=== PATIENT | male | born 1990 | race Two or more races ===

== ENCOUNTER 2018-03-08 23:36 | Emergency (ER) | payer BC ==
--- NOTE | 2018-03-08 23:50 | EDM.PDOC ---
ED HPI GENERAL MEDICAL PROBLEM - General Chief Complaint: Upper Extremity Injury/Pain Stated Complaint: RIGHT THUMB PAIN Time Seen by Provider: 03/08/18 23:47 - History of Present Illness INITIAL COMMENTS - FREE TEXT/NARRATIVE: HISTORY AND PHYSICAL: History of present illness: Past 27-year-old male presents with concern of acute injury to first digit right hand this occurred at work on his thumb was struck with a piece of equipment. He denies other trauma or concern Review of systems: As per history of present illness and below otherwise all systems reviewed and negative. Past medical history: As per history of present illness and as reviewed below otherwise noncontributory. Surgical history: As per history of present illness and as reviewed below otherwise noncontributory. Social history: No reported history of drug or alcohol abuse. Family history: As per history of present illness and as reviewed below otherwise noncontributory. Physical exam: HEENT: Atraumatic, normocephalic, pupils reactive, negative for conjunctival pallor or scleral icterus, mucous membranes moist, throat clear, neck supple, nontender, trachea midline. Lungs: Clear to auscultation, breath sounds equal bilaterally, chest nontender. Heart: S1S2, regular, negative for clicks, rubs, or JVD. Abdomen: Soft, nondistended, nontender. Negative for masses or hepatosplenomegaly. Negative for costovertebral tenderness. Pelvis: Stable nontender. Genitourinary: Deferred. Rectal: Deferred. Extremities: Patient has a small subungual hematoma noted first digit of his right hand at the base of his nail. He's had small swelling no crepitation limited range motion secondary to pain CMS and neurovascular exams unremarkable Neuro: Awake, alert, oriented. Cranial nerves II through XII unremarkable. Cerebellum unremarkable. Motor and sensory unremarkable throughout. Exam nonfocal. Diagnostics: X-ray right hand Therapeutics: To Be determined Impression: #1 acute right hand injury to small subungual hematoma Definitive disposition and diagnosis as appropriate pending reevaluation and review of above. Right Finger-Thumb Pain Score (Numeric/FACES): 7 - Related Data Allergies Allergy/AdvReac Type Severity Reaction Status Date / Time No Known Allergies Allergy Verified 03/08/18 23:44 Home Meds: Home Meds . [No Known Home Meds] 03/08/18 [History] Review of Systems - Review of Systems Review Of Systems: ROS reveals no pertinent complaints other than HPI. ED EXAM, GENERAL - Physical Exam Exam: See Below (See dictation) Course - Vital Signs Last Recorded V/S: Last Vital Signs Temp 36.3 C 03/08/18 23:45 Pulse 64 03/08/18 23:45 Resp 18 03/08/18 23:45 BP 128/84 03/08/18 23:45 Pulse Ox 98 03/08/18 23:45 - Orders/Labs/Meds Orders: Active Orders 24 hr Category Date Time Status Fingers Thumb Rt F5 [CR] Stat Exams 03/08/18 23:37 Taken Departure - Departure Time of Disposition: 00:11 Disposition: Home, Self-Care 01 Condition: Good Clinical Impression: Hand injury - Discharge Information Referrals: PCP,None [Primary Care Provider] - Forms: ED Department Discharge Additional Instructions: The following information is given to patients seen in the emergency department who are being discharged to home. This information is to outline your options for follow-up care. We provide all patients seen in our emergency department with a follow-up referral. The need for follow-up, as well as the timing and circumstances, are variable depending upon the specifics of your emergency department visit. If you don't have a primary care physician on staff, we will provide you with a referral. We always advise you to contact your personal physician following an emergency department visit to inform them of the circumstance of the visit and for follow-up with them and/or the need for any referrals to a consulting specialist. The emergency department will also refer you to a specialist when appropriate. This referral assures that you have the opportunity for followup care with a specialist. All of these measure are taken in an effort to provide you with optimal care, which includes your followup. Under all circumstances we always encourage you to contact your private physician who remains a resource for coordinating your care. When calling for followup care, please make the office aware that this follow-up is from your recent emergency room visit. If for any reason you are refused follow-up, please contact the [facility] emergency department at and asked to speak to the emergency department charge nurse. Motrin/Tylenol as directed splint as directed follow-up private medical doctor as needed as discussed and return as needed as discussed - My Orders Last 24 Hours: My Active Orders 03/08/18 23:37 Fingers Thumb Rt F5 [CR] Stat - Assessment/Plan Last 24 Hours: My Active Orders 03/08/18 23:37 Fingers Thumb Rt F5 [CR] Stat
--- NOTE | 2018-03-09 00:25 | CR ---
INDICATION: Trauma TECHNIQUE: Three views right thumb COMPARISON: None FINDINGS: Bones: Alignment is normal. No fractures or bone lesions. Joint spaces: Unremarkable. Soft tissues: Unremarkable. IMPRESSION: Negative. Dictated by Devante Parham MD @ 03/09/2018 12:23:17 AM Dictated by: Devante Parham MD @ 03/09/2018 00:23:26 (Electronically Signed)
== END 2018-03-09 00:25 | disposition home or self-care (01) ==
LOC: MW.ED 23:36
DX: S60.121A Contusion of right index finger with damage to nail, initial encounter (principal); W22.8XXA Striking against or struck by other objects, initial encounter; Y99.0 Civilian activity done for income or pay
CPT/HCPCS: 73140-26-F5; 73140-F5; 99283